=== PATIENT | female | born 1985 | race Caucasian/White ===

== ENCOUNTER 2017-02-10 08:00 | Outpatient (CLI) | payer MEDICAID, OTHER ==
[2017-02-10 18:57] LABS: BASOPHILS # (AUTO) 0.1 10^3/uL (0.0-0.1); BASOPHILS % (AUTO) 1.1 %; EOSINOPHILS # (AUTO) 0.1 10^3/uL (0.0-0.7); EOSINOPHILS % (AUTO) 1.4 %; HCT - HEMATOCRIT 39.9 % (37.0-47.0); HGB - HEMOGLOBIN 13.3 g/dL (12.0-16.0); LYMPHOCYTES # (AUTO) 2.7 10^3/uL (1.5-3.5); LYMPHOCYTES % (AUTO) 37.2 %; MEAN CORPUSCULAR HEMOGLOBIN 29.6 pg (27.0-31.0); MEAN CORPUSCULAR HGB CONC 33.2 g/dL (32.0-36.0); MEAN PLATELET VOLUME 11.3 fL (7.9-10.8); MONOCYTES # (AUTO) 0.6 10^3/uL (0.0-1.0); MONOCYTES % (AUTO) 8.5 %; NEUTROPHILS # (AUTO) 3.7 10^3/uL (1.5-6.6); NEUTROPHILS % (AUTO) 51.8 %; NUCLEATED RED BLOOD CELLS AUTO 0.1 /100WBC; RED BLOOD COUNT 4.48 10^6/uL (4.20-5.40); RED CELL DISTRIBUTION WIDTH 12.8 % (12.0-15.0); UNCORRECTED WHITE BLOOD COUNT 7.2 x10^3/uL; WHITE BLOOD COUNT 7.2 x10^3/uL (4.8-10.8)
[2017-02-10 19:23] LABS: ALBUMIN/GLOBULIN RATIO 1.6 (1.0-2.2); BILIRUBIN,TOTAL 0.7 mg/dL (0.2-1.0); BUN - BLOOD UREA NITROGEN 15 mg/dL (6-20); CALCIUM 9.1 mg/dL (8.5-10.3); CARBON DIOXIDE - CO2 25 mmol/L (21-32); CHLORIDE 104 mmol/L (101-111); CHOL/HDL RATIO 3.3 (<4.4); CHOLESTEROL 206 mg/dL; CREATININE 0.7 mg/dL (0.4-1.0); GFR - MDRD 98 (>89); GLUCOSE 89 mg/dL (70-100); HDL CHOLESTEROL 63 mg/dL; LDL/HDL RATIO 1.8 (<4.4); POTASSIUM 3.4 mmol/L (3.5-5.0); SODIUM 136 mmol/L (135-145); TOTAL PROTEIN 7.1 g/dL (6.7-8.2); TRIGLYCERIDES 158 mg/dL; VLDL CHOLESTEROL 32 mg/dL
== END 2017-02-10 08:01 | disposition home or self-care (01) ==
LOC: LAB.N 08:00
PROVIDERS: ATTEND Nurse Practitioner Gerontology
DX: Z13.9 Encounter for screening, unspecified (principal)
CPT/HCPCS: 36415; 80053; 80061; 84443; 85025

== ENCOUNTER 2017-08-07 10:37 | Outpatient (CLI) | payer MEDICAID ==
[2017-08-07 15:54] LABS: MUDS CUTOFF CONCENTRATIONS CUTOFF CONC BELOW:
[2017-08-07 16:15] LABS: AMPHETAMINE SCREEN,URINE NEGATIVE (NEGATIVE); BENZODIAZEPINES SCREEN, URINE NEGATIVE (NEGATIVE); COCAINE SCREEN URINE NEGATIVE (NEGATIVE); METHADONE SCREEN, URINE NEGATIVE (NEGATIVE); METHAMPHETAMINES SCREEN, URINE NEGATIVE (NEGATIVE); OPIATE SCREEN, URINE NEGATIVE (NEGATIVE); OXYCODONE SCREEN, URINE NEGATIVE (NEGATIVE); PROPOXYPHENE SCREEN, URINE NEGATIVE (NEGATIVE); TRICYCLIC ANTIDEPRESSANT,URINE NEGATIVE (NEGATIVE)
== END 2017-08-07 10:38 | disposition home or self-care (01) ==
LOC: LAB.R 10:37
PROVIDERS: ATTEND Obstetrics & Gynecology
DX: Z01.419 Encounter for gynecological examination (general) (routine) without abnormal findings (principal); Z3A.09 9 weeks gestation of pregnancy
CPT/HCPCS: 80306

== ENCOUNTER 2017-08-24 12:09 | Outpatient (CLI) | payer OTHER, MEDICAID ==
[2017-08-24 12:32] LABS: BASOPHILS # (AUTO) 0.1 10^3/uL (0.0-0.1); EOSINOPHILS # (AUTO) 0.1 10^3/uL (0.0-0.7); EOSINOPHILS % (AUTO) 1.3 %; HGB - HEMOGLOBIN 13.1 g/dL (12.0-16.0); LYMPHOCYTES # (AUTO) 2.2 10^3/uL (1.5-3.5); LYMPHOCYTES % (AUTO) 27.9 %; MEAN CORPUSCULAR HEMOGLOBIN 30.2 pg (27.0-31.0); MEAN CORPUSCULAR HGB CONC 34.2 g/dL (32.0-36.0); MEAN CORPUSCULAR VOLUME 88.2 fL (81.0-99.0); MEAN PLATELET VOLUME 9.9 fL (7.9-10.8); MONOCYTES # (AUTO) 0.6 10^3/uL (0.0-1.0); MONOCYTES % (AUTO) 7.2 %; NEUTROPHILS # (AUTO) 4.9 10^3/uL (1.5-6.6); NEUTROPHILS % (AUTO) 62.6 %; PLT - PLATELET COUNT 214 10^3/uL (130-450); RED BLOOD COUNT 4.33 10^6/uL (4.20-5.40); RED CELL DISTRIBUTION WIDTH 13.4 % (12.0-15.0); WHITE BLOOD COUNT 7.8 x10^3/uL (4.8-10.8)
[2017-08-24 14:11] LABS: BILIRUBIN,URINE NEGATIVE (NEGATIVE); GLUCOSE, URINE (UA) NEGATIVE (NEGATIVE); KETONES,URINE (UA) NEGATIVE (NEGATIVE); LEUKOCYTE ESTERASE, URINE NEGATIVE (NEGATIVE); NITRITE,URINE NEGATIVE (NEGATIVE); OCCULT BLOOD,URINE SMALL (NEGATIVE); PH,URINE 5.5 PH (5.0-7.5); PROTEIN,URINE NEGATIVE (NEGATIVE); UROBILINOGEN,URINE 0.2 (NORMAL) E.U./dL (NORMAL)
[2017-08-24 14:20] LABS: BACTERIA,URINE Few /HPF (None Seen); CLARITY,URINE CLEAR (CLEAR); RBC,URINE None Seen /HPF (0-5); SQUAMOUS EPITHELIAL CELL,UR FEW Squamous (<= Few)
[2017-08-25 14:38] LABS: HIV AG/AB 4TH GEN NON-REACTIVE (NON-REACTIVE)
[2017-08-25 15:41] LABS: HEPATITIS B SURFACE ANTIGEN NON-REACTIVE (NON-REACTIVE); HEPATITIS C ANTIBODY NON-REACTIVE (NON-REACTIVE)
== END 2017-08-24 12:10 | disposition home or self-care (01) ==
LOC: LAB 12:09
PROVIDERS: ATTEND Obstetrics & Gynecology
DX: Z34.81 Encounter for supervision of other normal pregnancy, first trimester (principal)
CPT/HCPCS: 36415; 81001; 81599; 85025; 86592; 86762; 86803; 86850; 86900; 86901; 87340; 87389

== ENCOUNTER 2017-10-30 07:23 | Outpatient (CLI) | payer OTHER, MEDICAID ==
--- NOTE | 2017-10-30 11:34 | Ultrasound Report ---
Reason: ENCOUNTER FOR SCREENING FOR MALFORMATION Procedure Date: 10/30/2017 Accession Number: [id number] / [id number] Procedure: US - OB Detailed Eval CPT Code: FULL RESULT: EXAM: COMPLETE OBSTETRICAL ULTRASOUND EXAM DATE: 10/30/2017 09:46 AM. CLINICAL HISTORY: anatomic survey. COMPARISON: None. TECHNIQUE: Real-time sonographic evaluation of the fetus performed by the horse race starter. Multiple field sales representative static images were saved for review. DATING: EGA 21 weeks/6 days with TEJAL 03/06/2018 based on the current ultrasound. GENERAL EVALUATION Wang . Cardiac activity: 135 bpm. movement: Visualized. Presentation: Variable. Placenta: Posterior position. No evidence for previa. Umbilical cord: 3 vessel cord. Eccentric placental cord origin, 1.3 cm from the placental margin. Amniotic fluid: Subjectively normal. MVP 3.7 cm. BIOMETRY Bi-Parietal Diameter (BPD): 5.2 cm, 21 weeks/6 days Head Circumference (HC): 19.5 cm, 21 weeks/5 days Abdominal Circumference (AC): 17.1 cm, 22 weeks/0 days Femur Length (FL): 3.8 cm, 22 weeks/0 days Estimated Weight: 465 gm. ANATOMY The intracranial structures, profile, face/nose/lips, spine, 4 chamber heart and outflow tracts, stomach, abdominal wall and cord insertion, diaphragm, kidneys, bladder, and extremities were visualized and demonstrate no abnormality. MATERNAL STRUCTURES Uterus: Likely small fibroids. Cervix: Long and closed. Transabdominal length 5.9 cm. Right ovary/adnexa: Not visualized. Left ovary/adnexa: Unremarkable. Free fluid: None. IMPRESSION: 1. Wang live intrauterine with gestational age 21 weeks/6 days based on the current ultrasound. 2. Estimated weight is within expected limits for assigned dating. 3. Normal anatomic survey. No anatomic abnormalities are detected at this time. 4. Marginal placental cord origin, 1.3 cm from the placental margin. RADIA
== END 2017-10-30 07:24 | disposition home or self-care (01) ==
LOC: DI 07:23
PROVIDERS: ATTEND Obstetrics & Gynecology
DX: Z36.3 Encounter for antenatal screening for malformations (principal)
CPT/HCPCS: 76811

== ENCOUNTER 2017-11-21 15:52 | Outpatient (CLI) | payer OTHER, MEDICAID | END 2017-11-21 15:53 | disposition home or self-care (01) | LOC: LAB.R 15:52 | PROVIDERS: ATTEND Obstetrics & Gynecology | DX: N76.0 Acute vaginitis (principal) | CPT/HCPCS: 87086; 87480; 87510; 87660 ==

== ENCOUNTER 2018-01-24 14:11 | Outpatient (CLI) | payer BC, MEDICAID ==
[2018-01-24 19:03] LABS: MEAN CORPUSCULAR HEMOGLOBIN 29.1 pg (27.0-31.0); MEAN CORPUSCULAR HGB CONC 33.2 g/dL (32.0-36.0); MEAN CORPUSCULAR VOLUME 87.4 fL (81.0-99.0); MEAN PLATELET VOLUME 11.5 fL (7.9-10.8); RED BLOOD COUNT 3.78 10^6/uL (4.20-5.40); WHITE BLOOD COUNT 9.1 x10^3/uL (4.8-10.8)
== END 2018-01-24 14:12 | disposition home or self-care (01) ==
LOC: LAB.N 14:11
PROVIDERS: ATTEND Obstetrics & Gynecology
DX: Z34.90 Encounter for supervision of normal pregnancy, unspecified, unspecified trimester (principal)
CPT/HCPCS: 36415; 82950; 85027; 86850

== ENCOUNTER 2018-02-02 08:00 | Outpatient (CLI) | payer BC, MEDICAID | END 2018-02-02 23:59 | disposition home or self-care (01) | LOC: LAB.R 08:00 | PROVIDERS: ATTEND Obstetrics & Gynecology | DX: Z36.85 Encounter for antenatal screening for Streptococcus B (principal) | CPT/HCPCS: 87081 ==

== ENCOUNTER 2018-03-02 03:01 | Inpatient (IN) | payer BC, MEDICAID ==
[2018-03-02] MEDS ORDERED: SODIUM CHLORIDE FLUSH 0.9% 10 ML SYRINGE ONE (03:25)
[2018-03-02] MEDS ORDERED: LACTATED RINGERS 1,000 ML IV ONE (03:25)
[2018-03-02] MEDS ORDERED: SODIUM CHLORIDE FLUSH 0.9% 10 ML SYRINGE IVP PRN ×2 (03:28→03:36)
[2018-03-02] MEDS ORDERED: fentaNYL 100 MCG/2 ML VIAL IVP PRN (03:28)
[2018-03-02] MEDS: SODIUM CHLORIDE FLUSH 0.9% 10 ML SYRINGE IVP SCH ×2 (03:44→12:24)
[2018-03-02] MEDS ORDERED: fent/BUPIV 2 MCG/0.125% 250 ML EP ONE (03:52)
[2018-03-02] MEDS ORDERED: OXYTOCIN/SODIUM CHLORIDE 500 ML IV SCH ×2 (04:00)
[2018-03-02] MEDS ORDERED: LACTATED RINGERS 1,000 ML IV SCH ×3 (04:00→12:00)
[2018-03-02 04:29] LABS: BASOPHILS # (AUTO) 0.1 10^3/uL (0.0-0.1); BASOPHILS % (AUTO) 0.9 %; EOSINOPHILS # (AUTO) 0.1 10^3/uL (0.0-0.7); EOSINOPHILS % (AUTO) 1.4 %; LYMPHOCYTES # (AUTO) 2.3 10^3/uL (1.5-3.5); LYMPHOCYTES % (AUTO) 28.6 %; MEAN CORPUSCULAR HEMOGLOBIN 27.8 pg (27.0-31.0); MEAN CORPUSCULAR VOLUME 81.9 fL (81.0-99.0); MEAN PLATELET VOLUME 11.1 fL (7.9-10.8); MONOCYTES % (AUTO) 11.8 %; NEUTROPHILS # (AUTO) 4.6 10^3/uL (1.5-6.6); NEUTROPHILS % (AUTO) 57.3 %; PLT - PLATELET COUNT 147 10^3/uL (130-450); RED CELL DISTRIBUTION WIDTH 13.6 % (12.0-15.0); WHITE BLOOD COUNT 8.1 x10^3/uL (4.8-10.8)
--- NOTE | 2018-03-02 05:14 | ANESTHESIA ---
Pre-Anesthesia VS, & Labs - Diagnosis term labor, IUP - Procedure IVANNA, convert to intrathecal Vital Signs: Temp Pulse Resp BP Pulse Ox 98.0 C H 55 L 20 161/81 H 100 03/02/18 03:11 03/02/18 03:11 03/02/18 03:11 03/02/18 03:11 03/02/18 03:11 Height 6 ft Weight (kg) 103.419 kg - NPO Last Fluid Intake: t/o day - Is Patient ?: Yes - Lab Results Current Lab Results: Laboratory Tests 03/02/18 03:50: WBC 8.1, RBC 4.30, Hgb 12.0, Hct 35.2 L, MCV 81.9, MCH 27.8, MCHC 34.0, RDW 13.6, Plt Count 147, MPV 11.1 H, Neut # (Auto) 4.6, Lymph # (Auto) 2.3, [place] # (Auto) 1.0, Eos # (Auto) 0.1, Baso # (Auto) 0.1, Absolute Nucleated RBC 0.01, Nucleated RBC % 0.1 Lab results reviewed: Yes Fish Bones: 03/02/18 03:50 Home Medications and Allergies Active Medications Fentanyl (Fentanyl) 50 mcg IVP Q1H PRN PRN Reason: PAIN Last Admin: 03/02/18 04:08 Dose: 50 mcg Lactated Ringer's (Lr) 1,000 mls @ 150 mls/hr IV .Q6H40M NATALIE Last Admin: 03/02/18 03:44 Dose: 150 mls/hr Oxytocin/Sodium Chloride (Pitocin/Sodium Chloride) 500 mls @ 50 mls/hr IV MAINTENANCE.IV NATALIE; Protocol Sodium Chloride (Normal Saline Flush 0.9%) 10 ml IVP PRN PRN PRN Reason: NEEDED PER PROVIDER ORDERS Sodium Chloride (Normal Saline Flush 0.9%) 10 ml IVP PRN PRN PRN Reason: NEEDED PER PROVIDER ORDERS Sodium Chloride (Normal Saline Flush 0.9%) 10 ml IVP 0100,0900,1700 NATALIE Last Admin: 03/02/18 03:44 Dose: 10 ml Citalopram [CeleXA] 20 mg PO DAILY 12/21/15 Etonogestrel/Ethinyl Estradiol [Nuvaring Vaginal Ring] 1 each VG 12/21/15 Allergies/Adverse Reactions: Allergies Allergy/AdvReac Type Severity Reaction Status Date / Time oxycodone HCl * AdvReac Mild Nausea Verified 08/10/15 08:30 [From Percocet] Anes History & Medical History - Anesthetic History Anesthesia Complications: reports: No previous complications Family history of Anesthesia Complications: Denies Family history of Malignant Hyperthermia: Denies - Medical History Smoking Status: Never smoker Exam General: Alert, Oriented x3, Cooperative Dental: WNL Mallampati classification: II Cardiovascular: Regular rate Mental/Cognitive Status: Alert/Oriented X3, Normal for patient Plan Anesthesia Type: Epidural Consent for Procedure(s) Verified and Reviewed: Yes Code Status: Attempt Resuscitation ASA classification: 2-Mild systemic disease Is this case an emergency?: No
--- NOTE | 2018-03-02 06:02 | HISTORY & PHYSICAL EXAMINATION ---
Admit History - Visit Reason Visit Reason: Contractions (Onset 1200. Pt seen in the clinic cx was 3 cm 80%) - : 2 Parity: 1 Premature: 0 Ectopic: 0 : 0 Care: positive: [facility] Risk/History: positive: None Complications This : positive: None Smoking Status: Never smoker - Mother's Labs Mother's Blood Type: positive: B Mother's RH: positive: Positive GBS: positive: Group B Step Negative Rubella Status: positive: Immune Meds/Allgy - Home Medications Home Medications: Ambulatory Orders Medication Instructions Recorded Confirmed Citalopram [CeleXA] 20 mg PO DAILY 12/21/15 12/21/15 Etonogestrel/Ethinyl Estradiol 1 each VG 12/21/15 [Nuvaring Vaginal Ring] - Allergies Allergies/Adverse Reactions: Allergies Allergy/AdvReac Type Severity Reaction Status Date / Time oxycodone HCl * AdvReac Mild Nausea Verified 08/10/15 08:30 [From Percocet] Physical - Abdominal Exam Vital Signs: Temp Pulse Resp BP Pulse Ox 98.0 C H 55 L 20 161/81 H 100 03/02/18 03:11 03/02/18 03:11 03/02/18 03:11 03/02/18 03:11 03/02/18 03:11 - Monitoring Strip Review: positive: Category I - Presentation Presentation: positive: Vertex - Vaginal Exam Membranes: positive: Membranes intact Dilation (in cm): 4 Effacement (%): 90 Station: positive: 0 Cervical Position: positive: Midposition - Speculum Exam Speculum Exam Performed: positive: No Plan for Labor - Plan For Labor I expect patient to be DC'd or transferred within 96 hours.: Yes Plan for Labor: Pt is a 33 yo 39 week active labor Admit Epidural at pt request.
--- NOTE | 2018-03-02 06:13 | DELIVERY NOTE ---
Delivery Note - Labor Labor: positive: Spontaneous (at 1200) - Delivery Method Delivery Method: positive: Vacuum assist (Pt developed mateo cardia in to the 80-90. Vaccume applied at +3 pulled with one contractions.) - Nuchal Cord Nuchal Cord: positive: None - Anesthetic Anesthetic Type: - Amniotic Fluid Description Amniotic Fluid Description: positive: Clear - Vacuum Use Indication for Vacuum Use: positive: Suspicion of immediate or potential compromise Type of Vacuum Cup: positive: Cup: Brooke Type Vacuum Extraction: positive: Successful Number of pop-offs: 0 - Episiotomy Type Episiotomy Type: positive: None - Laceration Laceration: positive: 2nd degree, Other (clitoral) - Delivery Outcome Delivery Outcome: positive: Livebirth - Zillah: positive: Placed in direct skin contact with mother, Bulb syringe, Stimulated, Warmed, [place] used sex: positive: Male - Cord Cord: positive: 3 vessels - Placenta Placenta: positive: Intact, Other (15-20% abruption with clot seen) - Delivery Comments (Free Text/Narrative) Delivery Comments (Free Text/Narrative): Pt developed strong contractions. Presented at 0308. Cx was 4 cm/90/0. SROM at 0450. requested anasthesia and a intrathecal placed. Progressed to complete at 0503. Developed deep decelerations in to the 80-90 with rapid recovery. informed pt of need to shorten second stage. Pulled with one contraction and easly delivered live male infant, Apgars of 8/9. 8 lb 6 oz. Placenta followed at 0529. inspected and noted to be in tact, however a 15-20% adherent clot noted. Pt suffered a midline clitoral laceration with venous bleeding. this responded to 2 figure 8 sutures of 3-0 vicril. laceration closed with 3-0 vicril. EBL 500 ml.
[2018-03-02] MEDS ORDERED: diphenhydrAMINE 25 MG CAPSULE PO PRN (11:21)
[2018-03-02] MEDS ORDERED: HYDROCORTISONE 1% CREAM 28 GM TUBE PR PRN (11:21)
[2018-03-02] MEDS ORDERED: WITCH HAZEL/GLYCERIN 1 EACH MED..PAD TOP PRN (11:21)
[2018-03-02] MEDS ORDERED: HYDROCORTISONE/PRAMOXINE 10 GM PR PRN (11:21)
[2018-03-02] MEDS ORDERED: oxyCODONE 5 MG TABLET PO PRN (11:21)
[2018-03-02] MEDS ORDERED: ONDANSETRON 4 MG/2 ML VIAL IVP PRN (11:21)
[2018-03-02] MEDS: ACETAMINOPHEN 325 MG TABLET PO PRN ×3 (12:23→22:50)
[2018-03-02] MEDS: CELECOXIB 100 MG CAPSULE PO SCH ×2 (13:46→21:03)
[2018-03-02] MEDS: SIMETHICONE CHEW 80 MG TABLET PO SCH ×2 (13:47→18:53)
[2018-03-02] MEDS: LACTATED RINGERS 1,000 ML IV SCH ×2 (14:37→18:41)
[2018-03-03] MEDS: ACETAMINOPHEN 325 MG TABLET PO PRN ×3 (03:40→13:04)
[2018-03-03] MEDS: SIMETHICONE CHEW 80 MG TABLET PO SCH (06:33)
[2018-03-03 06:42] LABS: BASOPHILS # (AUTO) 0.1 10^3/uL (0.0-0.1); BASOPHILS % (AUTO) 0.9 %; EOSINOPHILS # (AUTO) 0.1 10^3/uL (0.0-0.7); EOSINOPHILS % (AUTO) 1.2 %; HGB - HEMOGLOBIN 10.5 g/dL (12.0-16.0); LYMPHOCYTES # (AUTO) 2.2 10^3/uL (1.5-3.5); LYMPHOCYTES % (AUTO) 25.4 %; MEAN CORPUSCULAR HGB CONC 33.3 g/dL (32.0-36.0); MEAN CORPUSCULAR VOLUME 84.2 fL (81.0-99.0); MEAN PLATELET VOLUME 10.4 fL (7.9-10.8); MONOCYTES # (AUTO) 0.6 10^3/uL (0.0-1.0); MONOCYTES % (AUTO) 6.6 %; NEUTROPHILS # (AUTO) 5.6 10^3/uL (1.5-6.6); NEUTROPHILS % (AUTO) 65.9 %; PLT - PLATELET COUNT 126 10^3/uL (130-450); RED BLOOD COUNT 3.73 10^6/uL (4.20-5.40); RED CELL DISTRIBUTION WIDTH 13.8 % (12.0-15.0); WHITE BLOOD COUNT 8.6 x10^3/uL (4.8-10.8)
[2018-03-03] MEDS: CELECOXIB 100 MG CAPSULE PO SCH (08:23)
[2018-03-03 08:37] VITALS: BP 127/82
--- NOTE | 2018-03-03 10:23 | PROVIDER PROGRESS NOTE ---
Subjective - Prog Note Date Prog Note Date: 03/03/18 Prog Note Time: 10:20 - Subjective Pt reports feeling: Improved (PPD# 1 progressing well. Breast feeding and cramping with feeding.) Objective - Vital Signs/Intake & Output Reviewed Vital Signs: Yes Vital Signs: Vital Signs x48h Temp Pulse Resp BP Pulse Ox 03/03/18 08:20 36.5 C 69 16 127/82 H 99 03/03/18 05:12 36.4 C L 58 L 16 125/65 99 Intake & Output: Intake & Output 02/28/18 03/01/18 03/02/18 03/03/18 23:59 23:59 23:59 23:59 Output Total 600 Balance -600 - Objective General Appearance: positive: No acute distress, Alert Respiratory: positive: Chest non-tender, No respiratory distress, Breath sounds nml Cardiovascular: positive: Regular rate & rhythm, No murmur, No gallop Abdomen: positive: Non-tender, Nml bowel sounds, No distention, Mass (U-2) Extremities: negative: Calf tenderness, Suzie's sign/cords - Lab Results Fish Bones: 03/03/18 06:30 Other Labs: Lab Results x24hrs 03/03/18 Range/Units 06:30 WBC 8.6 (4.8-10.8) x10^3/uL RBC 3.73 L (4.20-5.40) 10^6/uL Hgb 10.5 L (12.0-16.0) g/dL Hct 31.4 L (37.0-47.0) % MCV 84.2 (81.0-99.0) fL MCH 28.0 (27.0-31.0) pg MCHC 33.3 (32.0-36.0) g/dL RDW 13.8 (12.0-15.0) % Plt Count 126 L (130-450) 10^3/uL MPV 10.4 (7.9-10.8) fL Neut # (Auto) 5.6 (1.5-6.6) 10^3/uL Lymph # (Auto) 2.2 (1.5-3.5) 10^3/uL [place] # (Auto) 0.6 (0.0-1.0) 10^3/uL Eos # (Auto) 0.1 (0.0-0.7) 10^3/uL Baso # (Auto) 0.1 (0.0-0.1) 10^3/uL Absolute Nucleated RBC 0.01 x10^3/uL Nucleated RBC % 0.1 /100WBC Assessment/Plan - Problem List (1) Vacuum extraction, delivered, current hospitalization Impression: Mother and baby doing well. Desires home. Discharge medication. Motrin 600 mg #30 Discussed breast feeding and contraception
--- NOTE | 2018-03-03 10:30 | Discharge Plan ---
Discharge Plan Disposition: 01 Home, Self Care Condition: Good Diet: Regular Activity Restrictions: pelvic rest Shower Restrictions: No Driving Restrictions: No No Smoking: If you smoke, Please STOP! Call for help. Follow-up with: Humera Morrison DO [Primary Care Provider] -
--- NOTE | 2018-03-03 15:34 | DISCHARGE SUMMARY ---
Physician: Ian Madrigal MD DATE OF ADMISSION: 03/02/2018 DATE OF DISCHARGE: 03/03/2018 ADMITTING DIAGNOSIS: A 33-year-old G2, P1, 39 weeks, active labor. DISCHARGE DIAGNOSES 1. A 33-year-old G2, P1, 39 weeks, active labor. 2. bradycardia. 3. Clitoral laceration. PROCEDURES 1. Vacuum-assisted vaginal delivery. 2. Repair of second-degree clitoral laceration. PRESENTING HISTORY: Patient is a 32-year-old G2, P1 female who presented at 39 weeks. She was in active labor. She had a history of a prolonged second stage. LABORATORIES: On admission, hemoglobin was 12.0; today it is fallen to 10.5. Platelets initially were 147, they are now 126. White count on admission was 8.1 and now is 8.6. HOSPITAL COURSE: Patient admitted, had a rapid progression through her first stage. She developed bradycardia down to the 80s and 90s, and a vacuum was applied at +3 station, pulled with one contraction, at which time a live male infant with Apgars 8 and 9 was delivered. She, at time of delivery, suffered a second-degree laceration of the clitoris. This had some venous bleeding and thus had [id number] placed to cause hemostasis, and a subcuticular stitch of 3-0 Vicryl was placed. Her course has been unremarkable. She is without difficulty. She states her pain level is 0/10 at this time. She is planning to breastfeed, and she has been encouraged in this endeavor. She is off her discharge medications, and she is requesting Motrin only. We have discussed the issues of related to benefits, as well as risk of mastitis and that it is not adequate contraception. Reviewed the fact that she needs to choose some form of contraception. TD: 03/03/2018 10:35 KENYATTA
--- NOTE | 2018-03-03 18:11 | Labor Flowsheet ---
Labor Flowsheet Datetime Report Generated by CPN: 03/03/2018 18:11 Datetime: 03/03/2018 08:15 VITAL SIGNS NBP Sys/Gricel/Mean (mmHg): 127 : 82 : 91 Pulse: 69 Datetime: 03/02/2018 06:49 SpO2 (%): 100 Datetime: 03/02/2018 05:20 UTERINE ACTIVITY Monitor Mode: External Frequency (min): 2-3 Quality: Strong Duration (sec): 60-100 Pattern: Normal: <= 5 Contractions in 10 Minutes Resting Tone (Palpate): Relaxed FHR Baseline Rate : 120 Variability: Moderate 6-25 bpm Accelerations: None Decelerations: Variable Category: Category II Comments: Spontaneous decelerations with ctx Datetime: 03/02/2018 05:18 STAGE 2 Pushing: Coached on Pushing Pushing Position: Pushing with Contractions Pushing Progress: Descent with Pushing; Presenting Part Visible Vacuum: On Datetime: 03/02/2018 05:09 ASSESSMENT A Monitor Mode: Internal Scalp Electrode Datetime: 03/02/2018 05:02 VAGINAL EXAM Dilatation (cm): 10.0 Effacement (%): 100 Station: 2 Exam by: Robin Velez, RN Datetime: 03/02/2018 05:01 COMMUNICATION Communication: Provider at Bedside Communication Comments: Dr. Giem @ bedside Datetime: 03/02/2018 04:59 Actions for Decelerations: Oxygen Applied Datetime: 03/02/2018 04:50 Membrane Status: Ruptured Membranes Rupture Method: Spontaneous Amniotic Fluid Color: Clear Amniotic Fluid Amount: Large Datetime: 03/02/2018 04:41 ANESTHESIA Epidural Procedure: Cath Placed Datetime: 03/02/2018 04:35 PROCEDURE TIME OUT Procedure Verify: Correct Patient Identity; Correct Side and Site are Marked; Accurate Procedure Co nsent Form; Agreement on Procedure to be Done; Correct Patient Position Anesthesia Comments: pt in position Datetime: 03/02/2018 04:09 MEDICATIONS Analgesics/Sedatives: Fentanyl (mcg) @ 50 Datetime: 03/02/2018 04:00 PAIN Pain Scale: 10 Pain Coping: Requesting Pain Medication or Epidural Datetime: 03/02/2018 03:56 MATERNAL ASSESSMENT Level of Consciousness: Fully Conscious DTR's/Clonus: DTRs 2+ Headache: Denies Breath Sounds, Left: Clear and Equal Breath Sounds, Right: Clear and Equal Nausea/Vomiting: Denies RUQ Epigastric Pain: Denies Patient Position/Activity: Walking I/O Interventions: Ice Chips Given TEACHING Instructional Method: Verbal Plan of Care: Plan of Care Discussed; Vaginal Delivery Labor/Induction: Labor Stages Pain Management: Epidural; Pain Scale/Goals; Comfort Measures Datetime: 03/02/2018 03:51 Patient Care Comments: Birthing ball @ bedside Datetime: 03/02/2018 03:43 Pain Assessment Comments: Requesting epidural Comfort Measures: Breathing/Relaxation Datetime: 03/02/2018 03:40 PATIENT CARE IV/Blood Work: IV Started; IV Bolus Started
== END 2018-03-03 14:40 | disposition home or self-care (01) | DRG 768 ==
LOC: WFO 03:01 → FBP 03:03 → WFO 03:19 → FBP 03:20
PROVIDERS: ADMIT Obstetrics & Gynecology; ATTEND Obstetrics & Gynecology
PROC: 10D07Z6 Extraction of Products of Conception, Vacuum, Via Natural or Artificial Opening (ICD-10-PCS; principal; 2018-03-02)
PROC: 0UQJXZZ Repair Clitoris, External Approach (ICD-10-PCS; 2018-03-02)
DX: O76 Abnormality in fetal heart rate and rhythm complicating labor and delivery (principal); Z37.0 Single live birth; O70.0 First degree perineal laceration during delivery; Z3A.39 39 weeks gestation of pregnancy
CPT/HCPCS: 36415; 85025; 99213

== ENCOUNTER 2018-04-12 12:12 | Outpatient (CLI) | payer BC, MEDICAID | END 2018-04-12 23:59 | disposition home or self-care (01) | LOC: LAB.R 12:12 | PROVIDERS: ATTEND Obstetrics & Gynecology | DX: R30.0 Dysuria (principal) | CPT/HCPCS: 87077; 87086; 87181 ==

== ENCOUNTER 2019-05-03 10:01 | Outpatient (CLI) | payer MEDICAID ==
[2019-05-03 12:23] LABS: BASOPHILS # (AUTO) 0.1 10^3/uL (0.0-0.1); BASOPHILS % (AUTO) 1.4 %; EOSINOPHILS # (AUTO) 0.1 10^3/uL (0.0-0.7); EOSINOPHILS % (AUTO) 1.2 %; HGB - HEMOGLOBIN 13.1 g/dL (12.0-16.0); LYMPHOCYTES # (AUTO) 1.9 10^3/uL (1.5-3.5); LYMPHOCYTES % (AUTO) 33.1 %; MEAN CORPUSCULAR HEMOGLOBIN 28.6 pg (27.0-31.0); MEAN CORPUSCULAR HGB CONC 32.2 g/dL (32.0-36.0); MEAN CORPUSCULAR VOLUME 88.9 fL (81.0-99.0); MEAN PLATELET VOLUME 13.4 fL (7.9-10.8); MONOCYTES # (AUTO) 0.5 10^3/uL (0.0-1.0); MONOCYTES % (AUTO) 8.7 %; NEUTROPHILS # (AUTO) 3.1 10^3/uL (1.5-6.6); NEUTROPHILS % (AUTO) 55.2 %; PLT - PLATELET COUNT 205 10^3/uL (130-450); RED BLOOD COUNT 4.58 10^6/uL (4.20-5.40); RED CELL DISTRIBUTION WIDTH 12.8 % (12.0-15.0); WHITE BLOOD COUNT 5.6 x10^3/uL (4.8-10.8)
[2019-05-03 12:40] LABS: ALBUMIN 4.7 g/dL (3.2-5.5); ALBUMIN/GLOBULIN RATIO 2.1 (1.0-2.2); ALKALINE PHOSPHATASE 42 IU/L (42-121); ALT ALANINE AMINOTRANSFERASE 14 IU/L (10-60); AST ASPARTATE AMINOTRANSFERASE 15 IU/L (10-42); BILIRUBIN,TOTAL 1.2 mg/dL (0.2-1.0); BUN - BLOOD UREA NITROGEN 15 mg/dL (6-20); CALCIUM 9.3 mg/dL (8.5-10.3); CARBON DIOXIDE - CO2 24 mmol/L (21-32); CHLORIDE 104 mmol/L (101-111); CHOL/HDL RATIO 3.4 (<4.4); CHOLESTEROL 258 mg/dL; CREATININE 0.7 mg/dL (0.4-1.0); GFR - MDRD 97 (>89); GLUCOSE 87 mg/dL (70-100); HDL CHOLESTEROL 76 mg/dL; LDL CHOLESTEROL,CALCULATED 171 mg/dL; LDL/HDL RATIO 2.3 (<4.4); SODIUM 137 mmol/L (135-145); TOTAL PROTEIN 6.9 g/dL (6.7-8.2); VLDL CHOLESTEROL 11 mg/dL
== END 2019-05-03 23:59 | disposition home or self-care (01) ==
LOC: LAB.N 10:01
PROVIDERS: ATTEND Nurse Practitioner Gerontology
DX: Z13.9 Encounter for screening, unspecified (principal)
CPT/HCPCS: 36415; 80053; 80061; 83721; 85025

== ENCOUNTER 2019-10-23 18:21 | Outpatient (CLI) | payer MEDICAID | END 2019-10-23 18:22 | disposition home or self-care (01) | LOC: COV 18:21 | PROVIDERS: ATTEND Family Medicine | DX: R05 Cough (principal); R53.83 Other fatigue; J02.9 Acute pharyngitis, unspecified; R09.81 Nasal congestion; Z20.828 Contact with and (suspected) exposure to other viral communicable diseases ==

== ENCOUNTER 2020-04-13 19:14 | Outpatient (CLI) | payer MEDICAID | END 2020-04-13 19:15 | disposition home or self-care (01) | LOC: COV 19:14 | PROVIDERS: ATTEND Family Medicine | DX: R50.9 Fever, unspecified (principal); M79.10 Myalgia, unspecified site; R53.83 Other fatigue; R19.7 Diarrhea, unspecified; R11.2 Nausea with vomiting, unspecified; Z20.822 Contact with and (suspected) exposure to COVID-19 ==

== ENCOUNTER 2020-06-22 18:04 | Emergency (ER) | payer MEDICAID ==
--- NOTE | 2020-06-22 18:29 | ED Physician Documentation ---
PD HPI FOCAL NEURO - Stated complaint Stated Complaint: WEAKNESS/NUMBNESS IN LIMBS - Chief complaint Chief Complaint: Neuro - History obtained from History obtained from: Patient - Additional information Additional information: 34-year-old woman, otherwise healthy with unlikely due to IUD being in place. She had finished working out today mostly weights. She was in her usual state of health. Driving home. Both arms went numb and this was followed by flexor carpopedal spasms of the arms. Also some perioral numbness and leg numbness. Now feels mostly back to normal, that said she feels a little out of her own body. Of note 2 days ago she had a syncopal episode. She had just stood up and got dizzy and then passed out for about 30 seconds. There is no associated chest pain, trouble breathing, pedal edema, calf pain, history of DVT or PE. No recent travel. Review of Systems Constitutional: reports: Reviewed and negative Nose: reports: Reviewed and negative Cardiac: reports: Reviewed and negative Respiratory: reports: Reviewed and negative PD PAST MEDICAL HISTORY - Past Surgical History Past Surgical History: No - Present Medications Home Medications: Ambulatory Orders Medication Instructions Recorded Confirmed Citalopram [CeleXA] 20 mg PO DAILY 12/21/15 06/22/20 - Allergies Allergies/Adverse Reactions: Allergies Allergy/AdvReac Type Severity Reaction Status Date / Time acetaminophen [From Percocet] Allergy Emesis Verified 06/22/20 18:11 oxycodone [From Percocet] Allergy Emesis Verified 06/22/20 18:11 oxycodone HCl * AdvReac Mild Nausea Verified 06/22/20 18:11 [From Percocet] - Social History Does the pt smoke?: No Smoking Status: Never smoker Does the pt drink ETOH?: No Does the pt have substance abuse?: No - Immunizations Immunizations are current?: No - POLST Patient has POLST: No PD ED PE NORMAL - Vitals Vital signs reviewed: Yes - General General: Alert and oriented X 3, No acute distress - HEENT HEENT: PERRL, EOMI - Neck Neck: Supple, no meningeal sign, No bony TTP - Cardiac Cardiac: RRR, No murmur - Respiratory Respiratory: No respiratory distress, Clear bilaterally - Abdomen Abdomen: Normal bowel sounds, Soft, Non tender - Back Back: No CVA TTP, No spinal TTP - Derm Derm: Normal color, Warm and dry - Extremities Extremities: No edema, No calf tenderness / cord - Neuro Neuro: Alert and oriented X 3, No motor deficit, No sensory deficit, Normal speech Results - Vitals Vitals: Vital Signs - 24 hr 06/22/20 06/22/20 06/22/20 18:11 18:30 19:01 Temperature 36.5 C Heart Rate 70 65 69 Respiratory 16 16 16 Rate Blood Pressure 115/62 114/72 105/65 O2 Saturation 100 100 100 Oxygen O2 Source Room air - EKG (time done) 1810 Rate: Rate (enter#) (60) Rhythm: NSR [place]: Normal Intervals: Normal DC QRS: Normal Ischemia: Normal ST segments - Labs Labs: Laboratory Tests 06/22/20 06/22/20 06/22/20 18:25 18:32 18:32 WBC 12.7 H RBC 4.33 Hgb 13.2 Hct 38.8 MCV 89.6 MCH 30.5 MCHC 34.0 RDW 11.8 L Plt Count 231 MPV 11.9 H Neut # (Auto) 10.1 H Lymph # (Auto) 1.7 [place] # (Auto) 0.7 Eos # (Auto) 0.1 Baso # (Auto) 0.1 Absolute Nucleated RBC 0.00 Nucleated RBC % 0.0 VBG pH VBG pCO2 VBG pO2 VBG HCO3 VBG Total CO2 VBG O2 Saturation VBG Base Excess Sodium 137 Potassium 3.3 L Chloride 105 Carbon Dioxide 22 Anion Gap 10.0 BUN 19 Creatinine 0.8 Estimated GFR (MDRD) 83 L Glucose 111 H Calcium 9.7 Magnesium 2.1 Total Creatine Kinase 151 Urine Color YELLOW Urine Clarity CLEAR Urine pH 6.0 Ur Specific [place] <=1.005 Urine Protein NEGATIVE Urine Glucose (UA) NEGATIVE Urine Ketones NEGATIVE Urine Occult Blood TRACE-INTA Urine Nitrite NEGATIVE Urine Bilirubin NEGATIVE Urine Urobilinogen 0.2 (NORMAL) Ur Leukocyte Esterase NEGATIVE Ur Microscopic Review NOT INDICATED Urine Culture Comments NOT INDICATED Urine HCG, Qual NEGATIVE 06/22/20 18:32 WBC RBC Hgb Hct MCV MCH MCHC RDW Plt Count MPV Neut # (Auto) Lymph # (Auto) [place] # (Auto) Eos # (Auto) Baso # (Auto) Absolute Nucleated RBC Nucleated RBC % VBG pH 7.469 H VBG pCO2 32.5 L VBG pO2 30.4 VBG HCO3 23.1 VBG Total CO2 24.1 VBG O2 Saturation 66.0 VBG Base Excess 0.1 Sodium Potassium Chloride Carbon Dioxide Anion Gap BUN Creatinine Estimated GFR (MDRD) Glucose Calcium Magnesium Total Creatine Kinase Urine Color Urine Clarity Urine pH Ur Specific [place] Urine Protein Urine Glucose (UA) Urine Ketones Urine Occult Blood Urine Nitrite Urine Bilirubin Urine Urobilinogen Ur Leukocyte Esterase Ur Microscopic Review Urine Culture Comments Urine HCG, Qual PD MEDICAL DECISION MAKING - ED course ED course: 34-year-old woman presents after what sounds like a panic attack with carpopedal spasms and peripheral numbness and tingling. Blood work here shows mild Respiratory alkalosis consistent with that diagnosis. Departure - Departure Disposition: 01 Home, Self Care Clinical Impression: Paresthesia Syncope Qualifiers: Syncope type: unspecified Qualified Code(s): R55 - Syncope and collapse Condition: Good Record reviewed to determine appropriate education?: Yes Instructions: ED Fainting Unkn Cause Comments: Follow-up with your primary care physician for further evaluation and treatment. Return for new or worsening symptoms. Discharge Date/Time: 06/22/20 19:16
[2020-06-22 18:37] LABS: BASOPHILS # (AUTO) 0.1 10^3/uL (0.0-0.1); BASOPHILS % (AUTO) 0.6 %; EOSINOPHILS # (AUTO) 0.1 10^3/uL (0.0-0.7); EOSINOPHILS % (AUTO) 0.5 %; HCT - HEMATOCRIT 38.8 % (37.0-47.0); HGB - HEMOGLOBIN 13.2 g/dL (12.0-16.0); LYMPHOCYTES # (AUTO) 1.7 10^3/uL (1.5-3.5); LYMPHOCYTES % (AUTO) 13.4 %; MEAN CORPUSCULAR HEMOGLOBIN 30.5 pg (27.0-31.0); MEAN CORPUSCULAR VOLUME 89.6 fL (81.0-99.0); MEAN PLATELET VOLUME 11.9 fL (7.9-10.8); MONOCYTES # (AUTO) 0.7 10^3/uL (0.0-1.0); MONOCYTES % (AUTO) 5.6 %; NEUTROPHILS # (AUTO) 10.1 10^3/uL (1.5-6.6); NEUTROPHILS % (AUTO) 79.3 %; PLT - PLATELET COUNT 231 10^3/uL (130-450); RED BLOOD COUNT 4.33 10^6/uL (4.20-5.40); RED CELL DISTRIBUTION WIDTH 11.8 % (12.0-15.0); WHITE BLOOD COUNT 12.7 x10^3/uL (4.8-10.8)
[2020-06-22 18:39] LABS: VBG PCO2 32.5 mmHg (41-51); VBG PH 7.469 (7.31-7.41)
[2020-06-22 18:40] LABS: VBG BASE EXCESS 0.1 mmol/L (-2 - +2); VBG HCO3 23.1 mmol/L (23-28); VBG PO2 30.4 mmHg (25-47); VBG TOTAL CO2 24.1 mmol/L (24-29)
[2020-06-22 18:44] LABS: BILIRUBIN,URINE NEGATIVE (NEGATIVE); GLUCOSE, URINE (UA) NEGATIVE (NEGATIVE); KETONES,URINE (UA) NEGATIVE (NEGATIVE); LEUKOCYTE ESTERASE, URINE NEGATIVE (NEGATIVE); NITRITE,URINE NEGATIVE (NEGATIVE); OCCULT BLOOD,URINE TRACE-INTA (NEGATIVE); PROTEIN,URINE NEGATIVE (NEGATIVE); UROBILINOGEN,URINE 0.2 (NORMAL) E.U./dL (NORMAL)
[2020-06-22 18:45] LABS: CLARITY,URINE CLEAR (CLEAR); HCG UR QUAL NEGATIVE
[2020-06-22 18:49] LABS: CALCIUM 9.7 mg/dL (8.5-10.3); CREATININE 0.8 mg/dL (0.4-1.0); MAGNESIUM 2.1 mg/dL (1.7-2.8); POTASSIUM 3.3 mmol/L (3.5-5.0)
[2020-06-22 19:03] VITALS: BP 105/65
== END 2020-06-22 19:16 | disposition home or self-care (01) ==
LOC: ED 18:04
DX: R20.2 Paresthesia of skin (principal); R55 Syncope and collapse
CPT/HCPCS: 36415; 80048; 81001; 81003; 81025; 82550; 82803; 83735; 85025; 87086; 93005; 99284

== ENCOUNTER 2022-05-12 10:12 | Outpatient (CLI) | payer OTHER ==
[2022-05-12 12:03] LABS: BASOPHILS # (AUTO) 0.1 10^3/uL (0.0-0.1); BASOPHILS % (AUTO) 1.3 %; EOSINOPHILS # (AUTO) 0.1 10^3/uL (0.0-0.7); EOSINOPHILS % (AUTO) 2.6 %; HCT - HEMATOCRIT 39.8 % (37.0-47.0); HGB - HEMOGLOBIN 13.6 g/dL (12.0-16.0); LYMPHOCYTES # (AUTO) 1.3 10^3/uL (1.5-3.5); LYMPHOCYTES % (AUTO) 34.1 %; MEAN CORPUSCULAR HEMOGLOBIN 30.2 pg (27.0-31.0); MEAN CORPUSCULAR HGB CONC 34.2 g/dL (32.0-36.0); MEAN CORPUSCULAR VOLUME 88.2 fL (81.0-99.0); MONOCYTES # (AUTO) 0.5 10^3/uL (0.0-1.0); MONOCYTES % (AUTO) 12.9 %; NEUTROPHILS # (AUTO) 1.9 10^3/uL (1.5-6.6); NEUTROPHILS % (AUTO) 48.8 %; PLT - PLATELET COUNT 226 10^3/uL (130-450); RED BLOOD COUNT 4.51 10^6/uL (4.20-5.40); RED CELL DISTRIBUTION WIDTH 12.3 % (12.0-15.0); WHITE BLOOD COUNT 3.9 x10^3/uL (4.8-10.8)
[2022-05-12 12:37] LABS: BILIRUBIN,URINE NEGATIVE (NEGATIVE); GLUCOSE, URINE (UA) NEGATIVE (NEGATIVE); KETONES,URINE (UA) NEGATIVE (NEGATIVE); LEUKOCYTE ESTERASE, URINE NEGATIVE (NEGATIVE); NITRITE,URINE NEGATIVE (NEGATIVE); OCCULT BLOOD,URINE TRACE-LYSE (NEGATIVE); PROTEIN,URINE NEGATIVE (NEGATIVE); UROBILINOGEN,URINE 0.2 (NORMAL) E.U./dL (NORMAL)
[2022-05-12 12:47] LABS: BACTERIA,URINE Rare /HPF (None Seen); CLARITY,URINE CLEAR (CLEAR); RBC,URINE 0-5 /HPF (0-5); SQUAMOUS EPITHELIAL CELL,UR RARE Squamous (<= Few); WBC,URINE 0-3 /HPF (0-5)
[2022-05-12 12:59] LABS: ALBUMIN/GLOBULIN RATIO 1.3 (1.0-2.2); BILIRUBIN,TOTAL 0.5 mg/dL (0.2-1.0); CALCIUM 9.5 mg/dL (8.5-10.3); CREATININE 0.8 mg/dL (0.4-1.0); TOTAL PROTEIN 7.2 g/dL (6.7-8.2)
[2022-05-12 13:14] LABS: THYROID STIMULATING HORMONE 1.16 uIU/mL (0.34-5.60)
--- NOTE | 2022-05-13 11:48 | XRAY Report ---
PROCEDURE: Abdomen 2 View X-Ray INDICATIONS: ABDOMINAL PAIN,LOWER TECHNIQUE: 2 views of the abdomen were acquired. COMPARISON: Ultrasound abdomen, 02/25/2010 FINDINGS: Surgical changes and devices: None. Bowel: No pneumoperitoneum. The bowel gas pattern is nonspecific. There are air-fluid levels in th e right lower quadrant. There is paucity of proximal colonic gas. Moderate amount of stool in colon. Soft tissues: Liver is enlarged. No masses; visualized solid organ contours appear normal in size. No suspicious abdominal calcifications. There is an IUD in pelvis. Bones: No suspicious bony abnormalities. IMPRESSION: 1. Hepatomegaly. 2. Nonspecific bowel gas pattern with multiple air-fluid levels. Cannot rule out low-grade small kristen l obstruction. If clinically indicated, CT would be helpful. 3. IUD in pelvis. Reviewed by: Gunjan Mensah MD on 05/13/2022 11:47 AM PST Approved by: Gunjan Mensah MD on 05/13/2022 11:47 AM PST Station ID: [id number]
== END 2022-05-12 10:13 | disposition home or self-care (01) ==
LOC: LAB.N 10:12 → DI 10:13
PROVIDERS: ATTEND Nurse Practitioner Family
DX: R10.30 Lower abdominal pain, unspecified (principal); R16.0 Hepatomegaly, not elsewhere classified; Z97.5 Presence of (intrauterine) contraceptive device
CPT/HCPCS: 36415; 80053; 81001; 84443; 85025; 87086

== ENCOUNTER 2022-05-14 16:37 | Emergency (ER) | payer OTHER ==
[2022-05-14 16:54] VITALS: BP 124/71
--- NOTE | 2022-05-14 17:12 | ED Physician Documentation ---
PD HPI ABD PAIN - Stated complaint Stated Complaint: ABD PX - Chief complaint Chief Complaint: Abd Pain - History obtained from History obtained from: Patient - Additional information Additional information: 36-year-old woman with history of bilateral inguinal hernia repair as a baby, otherwise no history of abdominal surgeries. She has a history of depression but is otherwise healthy. She has an IUD in place and her is status postvasectomy. She started develop abdominal troubles last weekend, probably about 6 days ago. She basically has had waxing and waning abdominal pressure without pain. Is associated with nausea but no vomiting. She has had relatively normal bowel movements but decreased appetite with this. No fevers. She was seen in clinic 2 days ago and had blood work demonstrating modest lymphopenia and an nondiagnostic abdominal x-ray. Pain worse today. Declines pain medication. PD PAST MEDICAL HISTORY - Past Medical History Psych: Depression - Past Surgical History Past Surgical History: No - Present Medications Home Medications: Ambulatory Orders Medication Instructions Recorded Confirmed Dicyclomine [Bentyl] 1 - 2 tab PO QID PRN #20 cap 05/14/22 Fluoxetine HCl [Prozac] 20 mg PO 05/14/22 - Allergies Allergies/Adverse Reactions: Allergies Allergy/AdvReac Type Severity Reaction Status Date / Time acetaminophen [From Percocet] Allergy Emesis Verified 05/14/22 16:55 oxycodone [From Percocet] Allergy Emesis Verified 05/14/22 16:55 oxycodone HCl * AdvReac Mild Nausea Verified 05/14/22 16:55 [From Percocet] - Social History Does the pt smoke?: No Smoking Status: Never smoker Does the pt drink ETOH?: No Does the pt have substance abuse?: No - Immunizations Immunizations are current?: No - POLST Patient has POLST: No PD ED PE NORMAL - Vitals Vital signs reviewed: Yes - General General: Alert and oriented X 3, No acute distress - HEENT HEENT: PERRL, EOMI - Neck Neck: Supple, no meningeal sign, No bony TTP - Cardiac Cardiac: RRR, No murmur - Respiratory Respiratory: No respiratory distress, Clear bilaterally - Abdomen Abdomen: Other (Mild tenderness in the right lower quadrant with diminished but not absent bowel sounds and no surgical signs.) - Back Back: No CVA TTP - Derm Derm: Normal color, Warm and dry - Extremities Extremities: No calf tenderness / cord - Neuro Neuro: Alert and oriented X 3, Normal speech Results - Vitals Vitals: Vital Signs - 24 hr 05/14/22 16:51 Temperature 37.1 C Heart Rate 69 Respiratory 18 Rate Blood Pressure 124/71 O2 Saturation 100 Oxygen O2 Source Room air - Labs Labs: Laboratory Tests 05/14/22 05/14/22 05/14/22 17:23 17:23 17:27 WBC 5.1 RBC 4.66 Hgb 13.8 Hct 41.0 MCV 88.0 MCH 29.6 MCHC 33.7 RDW 11.9 L Plt Count 265 MPV 11.4 H Neut # (Auto) Not Reportable Lymph # (Auto) Not Reportable [place] # (Auto) Not Reportable Eos # (Auto) Not Reportable Baso # (Auto) Not Reportable Absolute Nucleated RBC Not Reportable Total Counted 100 Band Neuts % (Manual) 0 Reactive Lymphs % (Man) 7 Abnorm Lymph % (Manual) 0 Nucleated RBC % Not Reportable Neutrophils # (Manual) 2.4 Lymphocytes # (Manual) 2.1 Monocytes # (Manual) 0.5 Eosinophils # (Manual) 0.0 Basophils # (Manual) 0.1 Differential Comment MANUAL DIFFERENTIAL Platelet Estimate NORMAL (130-450,000) Platelet Morphology NORMAL APPEARANCE RBC Morph Micro Appear NORMAL APPEARANCE Sodium 140 Potassium 3.6 Chloride 104 Carbon Dioxide 28 Anion Gap 8.0 BUN 15 Creatinine 0.9 Estimated GFR (MDRD) 71 L Glucose 94 Calcium 9.7 Total Bilirubin 0.6 AST 29 ALT 31 Alkaline Phosphatase 55 Total Protein 7.7 Albumin 4.5 Globulin 3.2 Albumin/Globulin Ratio 1.4 Lipase 43 Urine Color YELLOW Urine Clarity CLEAR Urine pH 7.0 Ur Specific [place] <=1.005 Urine Protein NEGATIVE Urine Glucose (UA) NEGATIVE Urine Ketones NEGATIVE Urine Occult Blood NEGATIVE Urine Nitrite NEGATIVE Urine Bilirubin NEGATIVE Urine Urobilinogen 0.2 (NORMAL) Ur Leukocyte Esterase NEGATIVE Ur Microscopic Review NOT INDICATED Urine Culture Comments NOT INDICATED Urine HCG, Qual NEGATIVE Nasal Adenovirus (PCR) Nasal B. parapertussis DNA (PCR) Nasal Coronavir 229E PCR Nasal Coronavir HKU1 PCR Nasal Coronavir NL63 PCR Nasal Coronavir OC43 PCR Nasal Enterovir/Rhinovir PCR Nasal Influenza B PCR Nasal Influenza A PCR Nasal Parainfluen 1 PCR Nasal Parainfluen 2 PCR Nasal Parainfluen 3 PCR Nasal Parainfluen 4 PCR Nasal RSV (PCR) Nasal B.pertussis DNA PCR Nasal C.pneumoniae (PCR) Jaquan Human Metapneumo PCR Nasal M.pneumoniae (PCR) Nasal SARS-CoV-2 (PCR) 05/14/22 17:27 WBC RBC Hgb Hct MCV MCH MCHC RDW Plt Count MPV Neut # (Auto) Lymph # (Auto) [place] # (Auto) Eos # (Auto) Baso # (Auto) Absolute Nucleated RBC Total Counted Band Neuts % (Manual) Reactive Lymphs % (Man) Abnorm Lymph % (Manual) Nucleated RBC % Neutrophils # (Manual) Lymphocytes # (Manual) Monocytes # (Manual) Eosinophils # (Manual) Basophils # (Manual) Differential Comment Platelet Estimate Platelet Morphology RBC Morph Micro Appear Sodium Potassium Chloride Carbon Dioxide Anion Gap BUN Creatinine Estimated GFR (MDRD) Glucose Calcium Total Bilirubin AST ALT Alkaline Phosphatase Total Protein Albumin Globulin Albumin/Globulin Ratio Lipase Urine Color Urine Clarity Urine pH Ur Specific [place] Urine Protein Urine Glucose (UA) Urine Ketones Urine Occult Blood Urine Nitrite Urine Bilirubin Urine Urobilinogen Ur Leukocyte Esterase Ur Microscopic Review Urine Culture Comments Urine HCG, Qual Nasal Adenovirus (PCR) NOT DETECTED Nasal B. parapertussis DNA (PCR) NOT DETECTED Nasal Coronavir 229E PCR NOT DETECTED Nasal Coronavir HKU1 PCR NOT DETECTED Nasal Coronavir NL63 PCR NOT DETECTED Nasal Coronavir OC43 PCR NOT DETECTED Nasal Enterovir/Rhinovir PCR NOT DETECTED Nasal Influenza B PCR NOT DETECTED Nasal Influenza A PCR NOT DETECTED Nasal Parainfluen 1 PCR NOT DETECTED Nasal Parainfluen 2 PCR NOT DETECTED Nasal Parainfluen 3 PCR NOT DETECTED Nasal Parainfluen 4 PCR NOT DETECTED Nasal RSV (PCR) NOT DETECTED Nasal B.pertussis DNA PCR NOT DETECTED Nasal C.pneumoniae (PCR) NOT DETECTED Jaquan Human Metapneumo PCR NOT DETECTED Nasal M.pneumoniae (PCR) NOT DETECTED Nasal SARS-CoV-2 (PCR) NOT DETECTED - Rads (name of study) CT of the abdomen pelvis showing small bowel enteritis Relevant Findings:: Final report received, EMP independent interpretation of test PD Medical Decision Making - ED course Complexity details: reviewed results (CBC reviewed and normal. CMP reviewed and normal. Urinalysis normal. Urine test negative. Bio fire respiratory panel negative.) ED course: 36-year-old woman with abdominal discomfort going on a week. Mild tenderness in the right lower quadrant but no surgical signs. Lab work normal. CT showing changes consistent with an enteritis and conservative measures with dicyclomine but also close return precautions were discussed. Departure - Departure Disposition: 01 Home, Self Care Clinical Impression: Gastroenteritis Condition: Good Record reviewed to determine appropriate education?: Yes Instructions: ED Gastroenteritis Viral Prescriptions: Dicyclomine [Bentyl] 1 - 2 tab PO QID PRN #20 cap PRN Reason: Abdominal Pain Comments: Your labs are normal. The CT of your belly shows an enteritis, viral infection of the small bowel. Should pass on its own. I am giving you something for the cramps to help in the meantime. Call your doctor to arrange a follow-up appointment, make the next available appointment. In the interim, return anytime if worse or if new symptoms develop. Discharge Date/Time: 05/14/22 19:20
[2022-05-14] MEDS ORDERED: iohexoL-300 100 ML VIAL ONE (17:25)
[2022-05-14 17:34] LABS: HGB - HEMOGLOBIN 13.8 g/dL (12.0-16.0); LYMPHOCYTES % (AUTO) 41.4 %; MEAN CORPUSCULAR HEMOGLOBIN 29.6 pg (27.0-31.0); MEAN CORPUSCULAR HGB CONC 33.7 g/dL (32.0-36.0); MEAN PLATELET VOLUME 11.4 fL (7.9-10.8); MONOCYTES % (AUTO) 7.7 %; NEUTROPHILS % (AUTO) 48.5 %; PLT - PLATELET COUNT 265 10^3/uL (130-450); RED BLOOD COUNT 4.66 10^6/uL (4.20-5.40); RED CELL DISTRIBUTION WIDTH 11.9 % (12.0-15.0); WHITE BLOOD COUNT 5.1 x10^3/uL (4.8-10.8)
[2022-05-14 17:41] LABS: ABNORMAL LYMPHS % (MANUAL) 0 %; BAND NEUTROPHILS % (MANUAL) 0 %
[2022-05-14 17:47] LABS: BILIRUBIN,URINE NEGATIVE (NEGATIVE); GLUCOSE, URINE (UA) NEGATIVE (NEGATIVE); KETONES,URINE (UA) NEGATIVE (NEGATIVE); LEUKOCYTE ESTERASE, URINE NEGATIVE (NEGATIVE); NITRITE,URINE NEGATIVE (NEGATIVE); OCCULT BLOOD,URINE NEGATIVE (NEGATIVE); PROTEIN,URINE NEGATIVE (NEGATIVE); UROBILINOGEN,URINE 0.2 (NORMAL) E.U./dL (NORMAL)
[2022-05-14 17:49] LABS: CLARITY,URINE CLEAR (CLEAR)
[2022-05-14 17:50] LABS: HCG UR QUAL NEGATIVE
[2022-05-14 17:55] LABS: ALBUMIN 4.5 g/dL (3.2-5.5); ALBUMIN/GLOBULIN RATIO 1.4 (1.0-2.2); BILIRUBIN,TOTAL 0.6 mg/dL (0.2-1.0); CALCIUM 9.7 mg/dL (8.5-10.3); CREATININE 0.9 mg/dL (0.4-1.0); POTASSIUM 3.6 mmol/L (3.5-5.0); TOTAL PROTEIN 7.7 g/dL (6.7-8.2)
[2022-05-14 18:24] LABS: BASOPHILS # (MANUAL) 0.1 10^3/uL (0-0.1); BASOPHILS % (MANUAL) 2 %; LYMPHOCYTES # (MANUAL) 2.1 10^3/uL (1.5-3.5); LYMPHOCYTES % (MANUAL) 35 %; MONOCYTES # (MANUAL) 0.5 10^3/uL (0.0-1.0); NEUTROPHILS # (MANUAL) 2.4 10^3/uL (1.5-6.6); REACTIVE LYMPHS % (MANUAL) 7 %
[2022-05-14 18:25] LABS: DIFFERENTIAL COMMENT MANUAL DIFFERENTIAL; PLATELET ESTIMATE, MANUAL NORMAL (130-450,000) (NORMAL); PLATELET MORPHOLOGY NORMAL APPEARANCE (NORMAL); RBC MORPHOLOGY (MULTIPLE) NORMAL APPEARANCE (NORMAL)
[2022-05-14] MEDS ORDERED: iohexoL-300 100 ML VIAL IVP ONE (18:32)
[2022-05-14 18:35] LABS: B. PARAPERTUSSIS- RESP PCR PAN NOT DETECTED; B. PERTUSSIS- RESP PCR PANEL NOT DETECTED; C. PNEUMONIAE- RESP PCR PANEL NOT DETECTED; CORONAVIRUS 229E-RESP PCR NOT DETECTED; CORONAVIRUS HKU1-RESP PCR NOT DETECTED; CORONAVIRUS NL63-RESP PCR NOT DETECTED; CORONAVIRUS OC43-RESP PCR NOT DETECTED; HUMAN METAPNEUMOVIRUS NOT DETECTED; INFLUENZA A- RESP PCR PANEL NOT DETECTED; INFLUENZA B - RESP PCR PANEL NOT DETECTED; M. PNEUMONIAE- RESP PCR PANEL NOT DETECTED; PARAINFLUENZA VIRUS 1 NOT DETECTED; PARAINFLUENZA VIRUS 2 NOT DETECTED; PARAINFLUENZA VIRUS 3 NOT DETECTED; PARAINFLUENZA VIRUS 4 NOT DETECTED; RHINOVIRUS/ENTEROVIRUS NOT DETECTED; RSV- RESP PCR PANEL NOT DETECTED; SARS-CoV-2 -RESP PCR PANEL NOT DETECTED
--- NOTE | 2022-05-14 18:45 | CT Report ---
PROCEDURE: ABDOMEN/PELVIS W INDICATIONS: IV ONLY ABD PAIN CONTRAST: 100ml omni 300 TECHNIQUE: After the administration of contrast, 5 mm thick sections acquired from the diaphragms to the symphys is. 5 mm thick coronal and sagittal reformats were acquired. For radiation dose reduction, the foll owing was used: automated exposure control, adjustment of mA and/or kV according to patient size. COMPARISON: None. FINDINGS: Image quality: Excellent. ABDOMEN: Lung bases: Lung bases are clear. Heart size is normal. Solid organs: Liver and spleen are normal in size and enhancement. The right lobe of the liver has 2 hypodensities measuring 8 mm and 10 mm which are probably hemangiomas, as seen on prior ultrasound. Gallbladder is normal. Biliary system is non dilated. Pancreas enhances normally. No adrenal nodu les. Kidneys demonstrate normal size and enhancement, without hydronephrosis. Peritoneum and bowel: There is fluid in the small bowel, likely enteritis. Otherwise bowel loops demo nstrate normal wall thickness and caliber. No free fluid or air. Nodes and vessels: No retroperitoneal or mesenteric adenopathy by size criteria. Aorta and inferior vena cava are normal in size. Miscellaneous: No ventral hernias. PELVIS: Genitourinary: Bladder wall thickness is normal. An IUD is well-positioned. Miscellaneous: No inguinal hernias or adenopathy. Bones: No suspicious bony lesions. No vertebral body compression fractures. IMPRESSION: 1. No acute abnormality of the abdomen or pelvis. 2. Fluid in the small bowel consistent with enteritis. Reviewed by: Bob James on 05/14/2022 5:43 PM [facility] Approved by: Bob James on 05/14/2022 5:43 PM [facility] Station ID: [id number]
[2022-05-14] MEDS ORDERED: DICYCLOMINE 10 MG CAPSULE PO STA (19:07)
== END 2022-05-14 19:20 | disposition home or self-care (01) ==
LOC: ED 16:37
DX: K52.9 Noninfective gastroenteritis and colitis, unspecified (principal); Z20.822 Contact with and (suspected) exposure to COVID-19
CPT/HCPCS: 36415; 74177; 80053; 81003; 81025; 83690; 85025; 87633; 99284; A9270; Q9967; 81001; 87086

== ENCOUNTER 2023-01-25 16:15 | Outpatient (CLI) | payer OTHER, MEDICAID ==
[2023-01-26 03:52] LABS: CHLAMYDIA TRACHOMATIS DNA NEGATIVE (NEGATIVE); NEISSERIA GONORRHOEAE DNA NEGATIVE (NEGATIVE); TRICHOMONAS VAGINALIS DNA NEGATIVE (NEGATIVE)
[2023-01-26 05:57] LABS: BACTERIAL VAGINOSIS DNA NEGATIVE (NEGATIVE); CANDIDA GLABRATA DNA NEGATIVE (NEGATIVE); CANDIDA GROUP DNA POSITIVE (NEGATIVE); CANDIDA KRUSEI DNA NEGATIVE (NEGATIVE); TRICHOMONAS VAGINALIS DNA NEGATIVE (NEGATIVE)
== END 2023-01-25 16:30 | disposition home or self-care (01) ==
LOC: LAB.N 16:15
PROVIDERS: ATTEND Physician Assistant Medical
DX: N76.0 Acute vaginitis (principal)
CPT/HCPCS: 81514; 87491; 87591; 87661

== ENCOUNTER 2023-03-20 12:30 | Outpatient (CLI) | payer MEDICAID, OTHER ==
[2023-03-20 22:14] LABS: BACTERIAL VAGINOSIS DNA NEGATIVE (NEGATIVE); CANDIDA GLABRATA DNA NEGATIVE (NEGATIVE); CANDIDA GROUP DNA POSITIVE (NEGATIVE); CANDIDA KRUSEI DNA NEGATIVE (NEGATIVE); TRICHOMONAS VAGINALIS DNA NEGATIVE (NEGATIVE)
== END 2023-03-20 12:45 | disposition home or self-care (01) ==
LOC: LAB.N 12:30
PROVIDERS: ATTEND Physician Assistant Medical
DX: N89.8 Other specified noninflammatory disorders of vagina (principal)
CPT/HCPCS: 81514

== ENCOUNTER 2023-04-03 08:00 | Outpatient (CLI) | payer OTHER ==
[2023-04-03 17:48] LABS: CHLAMYDIA TRACHOMATIS DNA NEGATIVE (NEGATIVE); NEISSERIA GONORRHOEAE DNA NEGATIVE (NEGATIVE); TRICHOMONAS VAGINALIS DNA NEGATIVE (NEGATIVE)
[2023-04-03 17:51] LABS: BACTERIAL VAGINOSIS DNA POSITIVE (NEGATIVE); CANDIDA GLABRATA DNA NEGATIVE (NEGATIVE); CANDIDA GROUP DNA NEGATIVE (NEGATIVE); CANDIDA KRUSEI DNA NEGATIVE (NEGATIVE); TRICHOMONAS VAGINALIS DNA NEGATIVE (NEGATIVE)
== END 2023-04-03 23:59 | disposition home or self-care (01) ==
LOC: LAB.WC 08:00
PROVIDERS: ATTEND Nurse Practitioner
DX: N89.8 Other specified noninflammatory disorders of vagina (principal)
CPT/HCPCS: 81514; 81599; 87491; 87591; 87661

== ENCOUNTER 2023-04-03 09:17 | Outpatient (CLI) | payer OTHER ==
[2023-04-03 11:45] LABS: ESTIMATED AVERAGE GLUCOSE 97 mg/dL (70-100)
== END 2023-04-03 09:18 | disposition home or self-care (01) ==
LOC: LAB 09:17
PROVIDERS: ATTEND Nurse Practitioner
DX: N89.8 Other specified noninflammatory disorders of vagina (principal)
CPT/HCPCS: 36415; 81514; 81599; 83036; 87109; 87491; 87591; 87661